=== PATIENT | female | born 1995 | race Caucasian/White ===

== ENCOUNTER 2019-03-05 18:03 | Emergency (ER) | payer MEDICAID, OTHER | END 2019-03-05 19:39 | disposition home or self-care (01) | LOC: FTE 18:03 | DX: S16.1XXA Strain of muscle, fascia and tendon at neck level, initial encounter (principal); V89.2XXA Person injured in unspecified motor-vehicle accident, traffic, initial encounter | CPT/HCPCS: 99283; Z7502 ==